=== PATIENT | male | born 1970 | race Caucasian/White ===

== ENCOUNTER 2024-10-13 13:51 | Inpatient (IN) | payer SELFPAY ==
[2024-10-13 14:52] VITALS: PULSE 71; RESP 20; O2SAT 98
--- NOTE | 2024-10-13 14:58 | P.HP_ITS ---
Providers/Chief Complaint Admitting Physician: Reed Coppola MD/ Interventional Cardiology Chief Complaint: Stemi History of Present Illness John Wilson is a 54 year old male with past medical history of hypertension and smoking presented to [facility] in [facility] with 35 minutes of severe substernal chest discomfort which according to patient his chest pain started last night. It was on and off. EKG demonstrated acute inferior wall ST elevation [place]. Patient was emergently transferred to our facility for coronary angiogram and PCI. Cardiac catheterization demonstrating 99% mid RCA stenosis status post successful revascularization with 1 stent. Review of Systems General: Reports: 10 or more systems reviewed and unremarkable except in HPI and below Card: Reports: chest pain PFSH Acute PFSH: Medical History Hypertension Social History Smoking and tobacco/nicotine status: current every day tobacco/nicotine user Physical Exam Narrative: GENERAL: Patient is alert, awake and oriented x3. [] NECK: No jugular vein distension. [] HEENT: No cyanosis. No icterus. No pallor. [] HEART: Regular S1 and S2. No murmur, rub or gallop. [] LUNGS: Clear to auscultate bilaterally. [] CENTRAL NERVOUS SYSTEM: Grossly nonfocal. [] EXTREMITIES: Lower extremities with no edema bilaterally. A&P Assessment and plan (1) STEMI (ST elevation myocardial infarction): (2) Hypertension: (3) Smoking history: Plan Patient has presented with acute inferior wall ST elevation [place]. Underwent successful revascularization of subtotal occlusion of mid RCA with 1 stent. Has moderate to severe OM stenosis that will be assessed with a stress test as outpatient. Continue aspirin and Plavix. ACT within normal limits. Heparin was given We will order echocardiogram. PDMP PDMP Reviewed: Not Reviewed Attestations Medical Necessity Statement*: Care expected to cross 2 midnights. Patient has presented with acute STEMI and underwent PCI of mid RCA with 1 stent. Coding Level of Care Code Acute Code for [facility] Fwd Diagnoses STEMI (ST elevation myocardial infarction) I21.3 Hypertension I10 Smoking history Z87.891
[2024-10-13 15:00] VITALS: BP 147/91; PULSE 88; RESP 16; O2SAT 97
--- NOTE | 2024-10-13 15:02 | PC.NURSE ---
Report called to Mariana MARSHALL. Pt transferred to ICU via w/c at this time.TR band intact to R radial access site,c/d/i, no hematoma noted.
--- NOTE | 2024-10-13 15:03 | USCV_ITS ---
John Wilson Age: 54 Gender: M : 1970 Exam Date: 10/13/2024 23:17 Ordering Phys: Kelly Figueroa Technologist: CHRISTOPHER Exam Location: [facility] [place] Indication: STEMI HTN long-term smoker, continues smoking BP: 149 / 81 HR: 58 Rhythm: Sinus Technical Quality: Adequate MEASUREMENTS (Male / Female) Normal Values 2D ECHO LV Diastolic Diameter PLAX 3.6 cm 4.2 - 5.9 / 3.9 - 5.3 cm IVS Diastolic Thickness 2.0 cm 0.6 - 1.0 / 0.6 - 0.9 cm IVS Systolic Thickness 2.5 cm LVPW Diastolic Thickness 1.7 cm 0.6 - 1.0 / 0.6 - 0.9 cm LVPW Systolic Thickness 2.0 cm LVOT Diameter 1.9 cm LV Ejection Fraction 2D Teich 62.6 % LV Ejection Fraction MOD 4C 65.6 % LV Ejection Fraction MOD 2C 58.9 % LV Ejection Fraction 2C AL 59.3 % LA Diameter 4.0 cm Aorta at Sinotubular Diameter 3.3 cm IVC Diameter 1.3 cm M-MODE LA Ao Ratio MM 1.3 AV Cusp Separation MM 1.9 cm DOPPLER AV Peak Velocity 147.0 cm/s LVOT Peak Velocity 130.0 cm/s AV Area Cont Eq vti 3.4 cm squared AV Area Cont Eq pk 2.5 cm squared MV Peak Velocity 121.0 cm/s MV Area PHT 3.5 cm squared Mitral E to A Ratio 0.9 TV Peak Velocity 221.5 cm/s TR Peak Velocity 233.0 cm/s TR Peak Gradient 21.7 mmHg TV Peak E Velocity 51.0 cm/s PV Peak Velocity 85.0 cm/s FINDINGS Left Ventricle Normal left ventricular size and systolic function, EF 62%.moderate left ventricular hypertrophy. Grade II/IV diastolic dysfunction, moderately elevated filling pressures. Right Ventricle The right ventricle is normal in size and function. Right Atrium The right atrium is normal in size. Left Atrium Mildly increased left atrial size. Mitral Valve No gross abnormalities noted Aortic Valve Thickened aortic valve. Trace to mild aortic valve regurgitation. Tricuspid Valve Trace tricuspid valve regurgitation. Pulmonic Valve Pulmonic valve not well visualized. Pericardium Normal pericardium without effusion. Aorta Normal aortic annulus size. IVC Normal inferior vena cava. CONCLUSIONS Normal left ventricular size and systolic function, EF 62%.moderate left ventricular hypertrophy. Grade II/IV diastolic dysfunction, moderately elevated filling pressures. Mildly increased left atrial size. Thickened aortic valve. Trace to mild aortic valve regurgitation. Trace tricuspid valve regurgitation. EstimThere is no pericardial effusion. There are no intracardiac masses. ated pulmonary artery peak systolic pressure, 25 mmHg No similar previous studies are available for comparison Dr Yolanda Cameron MD [facility] (Electronically Signed) Final Date: 14 Oct 2024 08:59 S
--- NOTE | 2024-10-13 15:08 | PM.PROC ---
Procedure Note: Date of procedure: 10/13/24 Pre-procedure diagnosis: STEMI Post-procedure diagnosis: other (Subtotal occlusion of mid RCA s/p PCI with 1 stent) Procedure: Left main artery is patent. LAD has mild luminal irregularities. OM1 vessel has 60 to 70% stenosis. RCA has subtotal occlusion of mid vessel s/p PCI of 1 stent. Aspirin and plavix High intensity statin therapy Echo ordered Performing Provider: Reed Coppola Estimated blood loss (mL): 10 Complications: None Condition: stable Disposition: floor Coding Level of Care Code Acute Code for Elvis Barlow
--- NOTE | 2024-10-13 15:26 | PC.NURSE ---
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
[2024-10-13 15:30] VITALS: BP 142/91; PULSE 67; RESP 21
[2024-10-13] MEDS: sodium chloride 0.9% 1,000 ML 100 ML IV (15:48)
[2024-10-13 16:54] VITALS: BP 149/81; PULSE 63; RESP 24; TEMP 36.4; O2SAT 96
--- NOTE | 2024-10-13 18:37 | PC.NURSE ---
Patient's right radial TR-band is removed. Air is slowly removed 2ml's at time. When air is completely removed TR-band is removed. A dressing of 2x2 and tegaderm is placed. Patient tolerated well. Patient is reeducated not to use his right wrist/hand for 24 hours. Patient states understanding.
[2024-10-13] MEDS: atorvastatin 40 mg Tablet 80 MG PO (20:09)
[2024-10-13] MEDS: temazepam 15 mg Capsule PO (20:10)
[2024-10-14 00:19] VITALS: BP 145/81; PULSE 80; RESP 21; TEMP 36.4; O2SAT 96
[2024-10-14 04:23] VITALS: BP 140/79; PULSE 76; RESP 22; TEMP 36.7; O2SAT 94
[2024-10-14 06:09] LABS: Basophils # 0.1 10^3/uL (0.0-0.1); Basophils % 0.5 %; Eosinophils # 0.1 10^3/uL (0.0-0.8); Eosinophils % 0.7 %; Hematocrit 50.7 % (37-53); Lymphocytes # 3.3 10^3/uL (0.8-4.8); Mean Corpuscular HGB Conc 32.7 g/dL (30-55); Mean Corpuscular Hemoglobin 30.5 pg (27-33); Mean Corpuscular Volume 93.2 fl (82-101); Mean Platelet Volume 11.5 fL (7.4-10.4); Monocytes % 7.1 %; Neutrophils # 9.67 10^3/uL (1.8-7.7); Neutrophils % 68.3 %; Nucleated Red Blood Cells % 0 %; Platelet Count 191 10^3/cmm (157-399); Red Blood Count 5.44 10^6/uL (3.85-5.65); Red Cell Distribution Width 12.7 % (12.1-15.1); White Blood Count 14.16 10^3/uL (3.29-11.43)
[2024-10-14 06:52] LABS: Anion Gap 16.1 (5-19); Blood Urea Nitrogen 13 mg/dL (6-20); Calcium 8.9 mg/dL (8.5-10.5); Carbon Dioxide 21 mmol/L (22-29); Chloride 102 mmol/L (98-107); Glomerular Filtration Rate 62.9 mL/min (90-130); Glucose 135 mg/dL (65-115); Osmolality Calculated 282 mOsm/kg (285-295); Potassium 4.1 mmol/L (3.5-5.1); Sodium 135 mmol/L (136-145)
--- NOTE | 2024-10-14 08:41 | PM.PN ---
Vitals/I&O/Wt Last Vital Signs Temp 98.0 F 10/14/24 04:23 Pulse 76 10/14/24 04:23 Resp 22 H 10/14/24 04:23 BP 140/79 10/14/24 04:23 Pulse Ox 94 10/14/24 04:23 O2 Del Method Room Air 10/14/24 04:23 10/13/24 10/14/24 10/14/24 22:59 06:59 14:59 Intake Total 490 / 1490 1000 / 1490 Balance 490 / 1490 1000 / 1490 Data 10/14/24 05:34 10/14/24 05:34 A&P PDMP PDMP Reviewed: Not Reviewed Coding Level of Care Code Acute Code for Chg Fwd
--- NOTE | 2024-10-14 08:45 | P.DS_ITS ---
<Statement entered by Reed Coppola M.D - 10/16/24 08:56> Patient was evaluated and cared for in conjunction with an advanced practice practitioner.? I personally examined the patient and reviewed the chart and all pertinent data including imaging, telemetry, and laboratory results.? I discussed the patient in detail with the advanced practice practitioner.? Please see? their note for complete discharge summary, testing results and agreed upon plan of care for the patient. Patient presented with acute ST elevation [place] and underwent successful vascularization of the mid RCA yesterday. He is chest pain free. Has moderate to severe OM branch stenosis. We will assess it with stress test as outpatient. GENERAL: Patient is alert, awake and oriented x3. HEART: Regular S1 and S2 LUNGS: Clear to auscultate bilaterally. CENTRAL NERVOUS SYSTEM: Grossly nonfocal. EXTREMITIES: Lower extremities without edema bilaterally. Discharge Providers Date of Admission: 10/13/2024 Date of Discharge: October 14, 2024 Attending Provider at Admission: Reed Coppola M.D Attending Provider at Discharge: Reed Coppola M.D Diagnoses at Discharge Discharge Diagnosis (1) STEMI (ST elevation myocardial infarction): Status: Acute (2) Hypertension: Status: Acute (3) Smoking history: Status: Acute Reason for Visit Reason for Visit: Stemi Brief History: John Wilson is a 54 year old male with past medical history of hypertension and smoking presented to [facility] in [facility] with 35 minutes of severe substernal chest discomfort which according to patient his chest pain started last night. It was on and off. EKG demonstrated acute inferior wall ST elevation [place]. Patient was emergently transferred to our facility for coronary angiogram and PCI. Cardiac catheterization demonstrating 99% mid RCA stenosis status post successful revascularization with 1 stent. Hospital Course Hospital Course He has done well overnight, with no chest pain or shortness of breath. No complications with right radial cath site. Blood pressure has been controlled with lisinopril/HCTZ, metoprolol succinate. Will encourage smoking cessation. Preliminary read of the echocardiogram shows LVEF 60 to 65%. No lifting with the right arm for the next 4 days. He is needing a work release to the end of the week. Continue aspirin, Plavix, atorvastatin. Follow-up with cardiology clinic in 7 to 10 days. Physical Exam Const: COMMON NORMALS: no acute distress and patient oriented x3 GENERAL APPEARANCE: cooperative ORIENTATION/CONSCIOUSNESS: Yes awake, Yes oriented to person, Yes oriented to place and Yes oriented to time Chest: COMMONS NORMALS: normal inspection of the chest and normal palpation of entire chest wall CHEST: Yes Symmetrical chest wall rise Resp: COMMON NORMALS: normal respiratory effort, No retractions, No use of accessory muscles and clear to auscultation bilaterally AUSCULTATION: clear to auscultation bilaterally Cardio: COMMON NORMALS: regular rate, regular rhythm, S1 normal heart sound present, S2 normal heart sound present, No gallops present (Cardio), No clicks present (Cardio), No murmurs present (Cardio) and No rub (Cardio) RATE: regular rate RHYTHM: regular rhythm HEART SOUNDS: S1 normal heart sound present and S2 normal heart sound present PERIPHERAL PULSES: radial pulses present positive right 2+ and femoral pulses present positive right 2+ Neuro: COMMON NORMALS: patient oriented x3 and moves all extremities SENSORIUM/ORIENTATION: Yes oriented to person, Yes oriented to place and Yes oriented to time Skin: WOUNDS: Yes surgical site (no hematoma palpable) Details: no odor Discharge Data Studies Completed and Pending Pending at discharge Category Date Time 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 echo complete* [id number] Routine Ultrasound 10/13/24 15:03 Taken Laboratory Results WBC 14.16 10^3/uL (3.29-11.43) H 10/14/24 05:34 RBC 5.44 10^6/uL (3.85-5.65) 10/14/24 05:34 Hgb 16.60 g/dL (11.27-16.99) 10/14/24 05:34 Hct 50.7 % (37-53) 10/14/24 05:34 MCV 93.2 fl (82-101) 10/14/24 05:34 MCH 30.5 pg (27-33) 10/14/24 05:34 MCHC 32.7 g/dL (30-55) 10/14/24 05:34 RDW 12.7 % (12.1-15.1) 10/14/24 05:34 Plt Count 191 10^3/cmm (157-399) 10/14/24 05:34 MPV 11.5 fL (7.4-10.4) H 10/14/24 05:34 Neut % (Auto) 68.3 % 10/14/24 05:34 Lymph % (Auto) 23.0 % 10/14/24 05:34 Addison % (Auto) 7.1 % 10/14/24 05:34 Eos % (Auto) 0.7 % 10/14/24 05:34 Baso % (Auto) 0.5 % 10/14/24 05:34 Neut # (Auto) 9.67 10^3/uL (1.8-7.7) H 10/14/24 05:34 Lymph # (Auto) 3.3 10^3/uL (0.8-4.8) 10/14/24 05:34 Addison # (Auto) 1.0 10^3/uL (0.2-0.9) H 10/14/24 05:34 Eos # (Auto) 0.1 10^3/uL (0.0-0.8) 10/14/24 05:34 Baso # (Auto) 0.1 10^3/uL (0.0-0.1) 10/14/24 05:34 Nucleated RBC % (auto) 0 % 10/14/24 05:34 Nucleated RBCs # 0.0 /100WBC 10/14/24 05:34 Sodium 135 mmol/L (136-145) L 10/14/24 05:34 Potassium 4.1 mmol/L (3.5-5.1) 10/14/24 05:34 Chloride 102 mmol/L (98-107) 10/14/24 05:34 Carbon Dioxide 21 mmol/L (22-29) L 10/14/24 05:34 Anion Gap 16.1 (5-19) 10/14/24 05:34 BUN 13 mg/dL (6-20) 10/14/24 05:34 Creatinine 1.2 mg/dL (0.7-1.2) 10/14/24 05:34 GFR Calculation 62.9 mL/min (90-130) L 10/14/24 05:34 Glucose 135 mg/dL (65-115) H 10/14/24 05:34 Calculated Osmolality 282 mOsm/kg (285-295) L 10/14/24 05:34 Calcium 8.9 mg/dL (8.5-10.5) 10/14/24 05:34 Vitals Last Vital Signs Temp 98.0 F 10/14/24 04:23 Pulse 76 10/14/24 04:23 Resp 22 H 10/14/24 04:23 BP 140/79 10/14/24 04:23 Pulse Ox 94 10/14/24 04:23 O2 Del Method Room Air 10/14/24 04:23 Discharge Plan Discharge Patient Disposition: Home Condition: Stable Prescriptions: New atorvastatin 40 mg Tablet 80 mg PO BEDTIME Qty: 90 1RF clopidogrel 75 mg Tablet 75 mg PO DAILY Qty: 90 3RF metoprolol succinate 25 mg Tablet Extended Release 24 Hr 25 mg PO DAILY Qty: 90 1RF aspirin 81 mg Tablet,Delayed Release (Dr/Ec) 81 mg PO DAILY Qty: 90 0RF nitroglycerin 0.4 mg Tablet, Sublingual 0.4 mg sublingual Q5M PRN (Reason: Chest Pain) Qty: 30 3RF Continued lisinopril-hydrochlorothiazide 10-12.5 mg tablet 1 tab PO BID Discharge Orders: Discharge Order (Routine); Ordered 10/14/24 Ordered By: Kelly Figueroa Referrals: Shirley Castillo NP [Nurse Practitioner, Cardiology] - 10/22/24 2:30 pm Deysi Bhardwaj FNP [Referring, Nurse Practitioner] - 10/23/24 1:00 pm Discharge Diet: Advance as tolerated Discharge Activity: Increase activity as tolerated Patient Instructions: Metoprolol (By mouth), Nitroglycerin (By mouth), Aspirin (By mouth), Atorvastatin (By mouth), Clopidogrel (By mouth), Heart Attack (DC), Coronary Angioplasty (DC), How to Stop Smoking (DC), Chronic Hypertension (DC), Opioid Safety Activity Restrictions/Additional Instructions: No lifting over 5 pounds for the next 4 days with right arm. May return to work on 10/20/2024 with no restrictions. Discharge Attestations Time Spent in Discharge Care*: less than 30 min Quality Metrics Clinical Quality Measures [ Acute Myocardial Infaction { Clinical Trial Participant: No; Contraindication to aspirin: None; Aspirin prescribed; Contraindication to statin: None; Statin prescribed; Contraindication to PCI: None; PCI performed;}] Coding Level of Care Code Acute Code for Chg Fwd Diagnoses STEMI (ST elevation myocardial infarction) I21.3 Hypertension I10 Smoking history Z87.891
[2024-10-14] MEDS: hydroCHLOROthiazide 25 mg Tablet 12.5 MG PO (08:46)
[2024-10-14] MEDS: lisinopril 10 mg Tablet PO ×2 (08:46→08:48)
[2024-10-14] MEDS: clopidogrel 75 mg Tablet PO (08:46)
[2024-10-14] MEDS: aspirin 81 mg EC Tablet PO (08:47)
[2024-10-14] MEDS: metoprolol succinate ER (24 HR) 25 mg Tablet PO (08:47)
[2024-10-14 09:05] LABS: Troponin T (5th) Once 2117 ng/L (0-15)
[2024-10-14 12:03] VITALS: BP 133/85; PULSE 62; RESP 20; TEMP 36.6; O2SAT 97
--- NOTE | 2024-10-14 16:22 | PC.NURSE ---
Patient has refused to wear cardiac monitoring today.
== END 2024-10-14 17:21 | disposition home or self-care (01) | DRG 322 ==
LOC: ER 13:54 → CCL 14:06 → ER 18:41 → CSU 10-14 06:02 → ER 10-14 11:28 → CSU 10-14 11:29
PROVIDERS: Nurse Practitioner Family; Admitting Provider Internal Medicine; Visit Provider Internal Medicine
PROC: 027034Z Dilation of Coronary Artery, One Artery with Drug-eluting Intraluminal Device, Percutaneous Approach (ICD-10-PCS; principal; 2024-10-13 13:40)
PROC: 027034Z Dilation of Coronary Artery, One Artery with Drug-eluting Intraluminal Device, Percutaneous Approach (ICD-10-PCS; 2024-10-13 13:40)
DX: I21.11 ST elevation (STEMI) myocardial infarction involving right coronary artery (principal); I10 Essential (primary) hypertension; F17.200 Nicotine dependence, unspecified, uncomplicated
CPT/HCPCS: 36415; 80048; 84484; 85025; 85347; 92978; 93306; 93458; 96374; 96375; 96376; 99152; 99153; C1725; C1753; C1769; C1874; C1887; C1894; C9600; J0461; J1200; J1644; J2250; J3010; J3490; J7030; J9999; Q9967